=== PATIENT | male | born 1980 | race Caucasian/White ===

== ENCOUNTER 2018-06-20 09:06 | Emergency (ER) | payer BC ==
[2018-06-20 09:44] VITALS: BP 137/85
--- NOTE | 2018-06-20 10:03 | UC ---
Respiratory Complaint HPI - HPI Summary HPI Summary: Per survey chief: "c/o runny nose, head congestion, chills, occasional cough that started yesterday. Denies any fever" -sudden osnet yesterday afternoon + body aches -no APAP or NSAIDs -no asthma, no wheezing - History of Current Complaint Chief Complaint: UCRespiratory Stated Complaint: CONGESTION,COUGH,CHILLS Time Seen by Provider: 06/20/18 09:36 Pain Intensity: 0 - Allergies/Home Medications Allergies/Adverse Reactions: Allergies Allergy/AdvReac Type Severity Reaction Status Date / Time No Known Allergies Allergy Verified 06/20/18 09:41 PMH/Surg Hx/FS Hx/Imm Hx Previously Healthy: Yes - Surgical History Surgical History: None - Family History Known Family History: Positive: None - Social History Alcohol Use: Rare Substance Use Type: None Smoking Status (MU): Never Smoked Tobacco Household Exposure Type: Cigarettes - Immunization History Most Recent Influenza Vaccination: [id number] Most Recent Tetanus Shot: <10 years Most Recent Pneumonia Vaccination: never Review of Systems All Other Systems Reviewed And Are Negative: Yes Constitutional: Positive: Fever, Chills, Fatigue Skin: Positive: Negative Eyes: Positive: Negative ENT: Positive: Sore Throat, Nasal Discharge. Negative: Sinus Pain/Tenderness Respiratory: Positive: Cough. Negative: Shortness Of Breath Cardiovascular: Positive: Negative. Negative: Palpitations, Chest Pain Gastrointestinal: Positive: Negative Genitourinary: Positive: Negative Motor: Positive: Negative Neurovascular: Positive: Negative Musculoskeletal: Positive: Negative Neurological: Positive: Negative Psychological: Positive: Negative Is Patient Immunocompromised?: No Physical Exam Triage Information Reviewed: Yes Appearance: Well-Appearing, No Pain Distress, Well-Nourished - very pleasant Vital Signs: Initial Vital Signs Temp 100.3 F 06/20/18 09:42 Pulse 81 06/20/18 09:42 Resp 15 06/20/18 09:42 BP 137/85 06/20/18 09:42 Pulse Ox 100 06/20/18 09:42 Vital Signs Reviewed: Yes Eye Exam: Normal ENT: Positive: Pharyngeal erythema, Nasal congestion, TMs normal, Uvula midline. Negative: TM bulging, TM dull, TM red, Tonsillar swelling, Tonsillar exudate, Sinus tenderness Neck exam: Normal Neck: Positive: Supple, Nontender, No Lymphadenopathy Respiratory Exam: Normal Respiratory: Positive: Lungs clear, Normal breath sounds, No respiratory distress, No accessory muscle use. Negative: Crackles, Rhonchi, Stridor, Wheezing Cardiovascular Exam: Normal Cardiovascular: Positive: RRR Abdominal Exam: Normal Abdomen Description: Positive: Nontender Musculoskeletal Exam: Normal Neurological Exam: Normal Psychological Exam: Normal Skin Exam: Normal Respiratory Course/Dx - Course Course Of Treatment: rapid flu neg -supportive treatment -sx mild - Differential Dx/Diagnosis Differential Diagnosis/HQI/PQRI: Bronchitis, Influenza Provider Diagnosis: Upper respiratory infection Discharge - Sign-Out/Discharge Documenting (check all that apply): Patient Departure All imaging exams completed and their final reports reviewed: No Studies - Discharge Plan Condition: Stable Disposition: HOME Forms: *Gen. Provider Communication Referrals: Kelton Genao MD [Primary Care Provider] - Additional Instructions: Flu swab is negative -rest, fluids, ibuprofen or tylenol will be helpful for symptoms. -follow up with your primary care if your symptoms increase or persist. - Billing Disposition and Condition Condition: STABLE Disposition: Home
[2018-06-20 10:21] LABS: Influenza A Molecular NEGATIVE (Negative); Influenza B Molecular NEGATIVE (Negative)
== END 2018-06-20 10:36 | disposition home or self-care (01) ==
LOC: UCCORT 09:06
DX: J06.9 Acute upper respiratory infection, unspecified (principal)
CPT/HCPCS: 99201; G0463

== ENCOUNTER 2019-03-09 12:45 | Emergency (ER) | payer BC ==
[2019-03-09 13:05] VITALS: BP 126/89
--- NOTE | 2019-03-09 13:14 | UC ---
Respiratory Complaint HPI - HPI Summary HPI Summary: PATIENT HAD URI SYMPTOMS ABOUT 2 WEEKS AGO INCLUDING COUGH, CONGESTION, SORE THROAT. STATES HIS SYMPTOMS ALL RESOLVED EXCEPT FOR A PERSISTENT COUGH WHICH SOMETIMES MAKES IT DIFFICULT FOR HIM TO SLEEP THROUGH THE NIGHT. - History of Current Complaint Chief Complaint: UCGeneralIllness Stated Complaint: URI Time Seen by Provider: 03/09/19 13:05 Hx Obtained From: Patient Onset/Duration: Gradual Onset, Lasting Weeks, Still Present Timing: Constant Severity Initially: Mild Severity Currently: Mild Pain Intensity: 0 Pain Scale Used: 0-10 Numeric Character: Cough: Nonproductive Aggravating Factors: Nothing Alleviating Factors: Nothing Associated Signs And Symptoms: Positive: URI - RESOLVED - Allergies/Home Medications Allergies/Adverse Reactions: Allergies Allergy/AdvReac Type Severity Reaction Status Date / Time No Known Allergies Allergy Verified 06/20/18 09:41 PMH/Surg Hx/FS Hx/Imm Hx Previously Healthy: Yes - Surgical History Surgical History: None - Family History Known Family History: Positive: None - Social History Alcohol Use: Occasionally Substance Use Type: None Smoking Status (MU): Never Smoked Tobacco Household Exposure Type: Cigarettes - Immunization History Most Recent Influenza Vaccination: [id number] Most Recent Tetanus Shot: <10 years Most Recent Pneumonia Vaccination: never Review of Systems All Other Systems Reviewed And Are Negative: Yes Constitutional: Positive: Negative ENT: Positive: Negative Respiratory: Positive: Cough Cardiovascular: Positive: Negative Gastrointestinal: Positive: Negative Physical Exam Triage Information Reviewed: Yes Appearance: Well-Appearing, No Pain Distress, Well-Nourished Vital Signs: Initial Vital Signs Temp 98.1 F 03/09/19 13:00 Pulse 70 03/09/19 13:00 Resp 18 03/09/19 13:00 BP 126/89 03/09/19 13:00 Pulse Ox 99 03/09/19 13:00 Vital Signs Reviewed: Yes Eyes: Positive: Conjunctiva Clear ENT: Positive: Hearing grossly normal, Pharynx normal, TMs normal Neck: Positive: Supple, Nontender, No Lymphadenopathy Respiratory Exam: Normal Cardiovascular Exam: Normal Abdomen Description: Positive: Soft Musculoskeletal: Positive: No Edema Neurological: Positive: Alert Psychological: Positive: Age Appropriate Behavior Skin: Negative: Rashes Respiratory Course/Dx - Differential Dx/Diagnosis Provider Diagnosis: Post-viral cough syndrome Discharge ED - Sign-Out/Discharge Documenting (check all that apply): Patient Departure All imaging exams completed and their final reports reviewed: No Studies - Discharge Plan Condition: Stable Disposition: HOME Prescriptions: Benzonatate CAP* [Tessalon CAP*] 1 - 2 cap PO TID PRN #30 cap PRN Reason: Cough predniSONE TAB* [Deltasone TAB*] 50 mg PO DAILY #5 tab Patient Education Materials: Acute Cough (ED) Referrals: Kelton Genao MD [Primary Care Provider] - If Needed Additional Instructions: I SUSPECT YOUR PERSISTENT COUGH IS A RESULT OF RESIDUAL INFLAMMATION IN YOUR AIRWAYS DUE TO YOUR RECENT URI. NO INDICATION FOR ANTIBIOTICS AT PRESENT. WILL TREAT AIRWAY INFLAMMATION WITH PREDNISONE. COUGH MEDICINE NEEDED. REST , HYDRATE. FOLLOW-UP IF NOT IMPROVING EXPECTED. - Billing Disposition and Condition Condition: STABLE Disposition: Home
== END 2019-03-09 13:28 | disposition home or self-care (01) ==
LOC: UCEAST 12:45
DX: R05 Cough (principal); B34.9 Viral infection, unspecified
CPT/HCPCS: 99211; G0463

== ENCOUNTER 2019-04-12 19:24 | Emergency (ER) | payer BC ==
--- OUTSIDE RECORDS SUMMARY | 2019-04-12 19:31 | XMS REPORT | Summary of Care ---
:1980 Author Organization [facility] Address [address] [place] [address] Care Team Providers Name Role Phone Kelton Genao Unavailable Kelton Genao Primary Care Provider Reason for Visit Reason Comments Sick body aches, hot and cold flashes, sore throat, sinus congestion Encounter Details Date Type Department Care Team Description 03/02/2019 Office Visit [facility] Josephine Tilley, Oral candidiasis ( Primary Dx); Practice [facility] Acute URI [address] [place] [address] [place] [address] [phone] Allergies No Known Allergiesdocumented as of this encounter (statuses as of 03/02/2019) Medications Medication Sig Dispensed Refills Start Date End Date Status clotrimazole anna Take 10 mg by 70 Tab 0 03/02/2019 Active (MYCELEX) 10 MG mouth FIVE Mouth/Throat TIMES DAILY. TrocheIndications: Oral candidiasis DiphenhydrAMINE HCl Take by 0 Discontinued (BENADRYL ALLERGY PO) mouth. 9 Benzonatate 200 MG Take 1 Cap by 42 Cap 0 04/28/2017 Discontinued Oral Cap mouth THREE 9 TIMES DAILY NEEDED (cough). Dextromethorphan-Guai Take by 0 Discontinued fenesin (ROBITUSSIN mouth 9 DM PO) NEEDED. Wmvytbjszywhf-LY-WM-A Take by 0 Discontinued PAP (MUCINEX FAST-MAX mouth 9 SEVERE COLD PO) NEEDED. guaiFENesin-codeine Take 10 mL by 420 mL 0 05/01/2017 Discontinued (ROBITUSSIN AC) mouth EVERY 9 100-10 MG/5ML Oral BEDTIME SolutionIndications: NEEDED Persistent cough (cough). Max Daily Amount: 10 mL. documented as of this encounter (statuses as of 03/02/2019) Active Problems No known active problemsdocumented as of this encounter (statuses as of 2018) Social History Tobacco Use Types Packs/Day Years Used Date Never Smoker Smokeless Tobacco: Never Used Alcohol Use Drinks/Week oz/Week Comments No Sex Assigned at Date Recorded Not on file Job Start Date Occupation Industry Not on file Not on file Not on file Travel History Travel Start Travel End No recent travel history available. documented as of this encounter Last Filed Vital Signs Vital Sign Reading Time Taken Comments Blood Pressure 124/74 03/02/2019 2:15 PM EST Pulse 89 03/02/2019 2:15 PM EST Temperature 37.6 03/02/2019 2:15 PM C (99.7 EST F) Respiratory Rate - - Oxygen Saturation 98% 03/02/2019 2:15 PM EST Inhaled Oxygen Concentration - - Weight 82.5 kg (181 lb 12.8 oz) 03/02/2019 2:15 PM EST Height 182.9 cm (6') 03/02/2019 2:15 PM EST Body Mass Index 24.66 03/02/2019 2:15 PM EST documented in this encounter Patient Instructions Patient InstructionsJosephine Tilley NP - 03/02/2019 2:20 PM EST Clotrimazole anna - use 5 times daily for 14 days. Please return after treatment so I can check your tongue again. Please do labs today. 1) Take Tylenol and Motrin over the counter as needed for pain and symptom relief 2) Flonase 2 sprays in each nostril daily 3) salt water gargles, cough drops, hot tea with lemon or honey to soothe your throat. 4) Get plenty of rest and fluids 5) Please call or return if symptoms worsen or fail to improve You have been prescribed an antibiotic for treatment of your condition. It is important to rememberthat antibiotics treat bacterial infections. In order for them to be effective - you must take ALL of the medication and take it exactly as prescribed. FINISH THE MEDICATION - even if you are feelingbetter. Antibiotics can cause stomach upset and diarrhea. You can help decrease these symptoms by also taking a probiotic while using the medication (Align, Culturelle or the like). Take with food if recommended by the pharmacist. If you are not feeling better in 3-5 days - call or return to the office. 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 It can affect your nose, throat, ears,and sinuses. Common signs and symptoms include the following: Cold symptoms are usually worst for the first 3 to5 days. You may have any of the following: Runny or stuffy nose Sneezing and coughing Sore throat or hoarseness Red, watery, and sore eyes Fatigue Chills and fever Headache, body aches, or sore muscles Seek care immediately if: You have severe headaches, a stiff neck, or eye pain when you look at bright light. You have chest pain or trouble breathing. Contact your healthcare provider if: You have a fever over 102F (39C). Your sore throat gets worse or you see white or yellow spots in your throat. Your symptoms get worse after 3 to 5 days or your cold is not better in 14 days. You have a rash anywhere on your skin. You have large, tender lumps in your neck. You have thick, green or yellow drainage from your nose. You cough up thick yellow, green, mcleod, or bloody mucus. You have vomiting for more than 24 hours and cannot keep fluids down. You have a bad earache. You have questions or concerns about your condition or care. Treatment for a cold: There is no cure for the common cold. Colds are caused by viruses and do not get better with antibiotics. Most people get better in 7 to 14 days. You may continue to cough for 2 to 3 weeks. The following may help decrease your symptoms: Decongestants help reduce nasal congestion and help you breathe more easily. If you take decongestant pills, they may make you feel restless or not able to sleep. Do not use decongestant sprays for more than a few days. Cough suppressants help reduce coughing. Ask your healthcare provider which type of cough medicine is best for you. NSAIDs , such as ibuprofen, help decrease swelling, pain, and fever. NSAIDs can cause stomach bleeding or kidney problems in certain people. If you take blood thinner medicine, always ask your healthcare provider if NSAIDs are safe for you. Always read the medicine label and follow directions. Acetaminophen decreases pain and fever. It is available without a doctor' s order. Ask how muchto take and how often to take it. Follow directions. Acetaminophen can cause liver damage if not taken correctly. Manage your cold: Use a humidifier or vaporizer. Use a cool mist humidifier or a vaporizer to increase air moisture in your home. This may make it easier for you to breathe and help decrease your cough. Gargle with warm salt water to help your sore throat feel better. Make salt water by adding teaspoon salt to 1 cup warm water. You may also suck on hard candy or throat lozenges. You may usea sore throat spray. Use saline nasal drops to help relieve your congestion. Drink liquids as directed. Liquids help keep your air passages moist and help you cough up mucus. Ask how much liquid to drink each day and which liquids are best for you. Rest as much as possible. Slowly start to do more each day. Prevent spreading your cold to others: Try to stay away from other people during the first 2 to 3 days of your cold when it is more easily spread. Do not share food or drinks. Do not share hand towels with household members. Wash your hands often, especially after you blow your nose. Turn away from other people and cover your mouth and nose with a tissue when you sneeze or cough. Follow up with your healthcare provider as directed: Write down your questions so you remember to ask them during your visits. 2016 [employer] Information is for End User's use only and may not be sold, redistributed or otherwise used for commercial purposes. All illustrations and images included in CareNotes are the copyrighted property of [employer] or [employer]. The above information is an blind aide only. It is not intended as medical advice for individual conditions or treatments. Talk to your doctor, nurse or pharmacist before following any medical regimen to see if it is safe and effective for you. documented in this encounter Progress Notes Josephine Tilley NP - 03/02/2019 2:20 PM EST PATIENT: Olivier Bynum : 1980 DATE OF SERVICE: 03/02/2019 CHIEF COMPLAINT: Chief Complaint Patient presents with Sick body aches, hot and cold flashes, sore throat, sinus congestion Subjective HISTORY OF PRESENT ILLNESS: Olivier Bynum is a 38-y.o. male. HPI Sick since yesterday - hot/cold chills, body aches, congestion, unsure about fever but felt warm, nocough, +sore throat. Parents were sick previously. Works for [employer]. Treatements include tylenol which helps a bit with the fever (feeling warm). Last dose was this am around 4am. Sickness came on gradually rather than suddenly. He worked last night and felt ok, but then started feeling sick when he got home and then worse today. Past Medical History: Diagnosis Date Seasonal allergies spring -claritin D Family History Problem Relation Age of Onset Heart Maternal Grandfather Current Outpatient Medications Medication Sig clotrimazole anna (MYCELEX) 10 MG Mouth/Throat Anna Take 10 mg by mouth FIVE TIMES DAILY. No current facility-administered medications for this visit. No Known Allergies Social History Socioeconomic History Marital status: Single Spouse name: Not on file Number of children: Not on file Years of education: Not on file Highest education level: Not on file Occupational History Not on file Social Needs Financial resource strain: Not on file Food insecurity Worry: Not on file Inability: Not on file Transportation needs Medical: Not on file Non-medical: Not on file Tobacco Use Smoking status: Never Smoker Smokeless tobacco: Never Used Substance and Sexual Activity Alcohol use: No Drug use: No Sexual activity: Not on file Lifestyle Physical activity Days per week: Not on file Minutes per session: Not on file Stress: Not on file Relationships Social connections Talks on phone: Not on file Gets together: Not on file Attends advent service: Not on file Active member of club or organization: Not on file Attends meetings of clubs or organizations: Not on file Relationship status: Not on file Intimate partner violence Fear of current or ex partner: Not on file Emotionally abused: Not on file Physically abused: Not on file Forced sexual activity: Not on file Other Topics Concern Back Care Not Asked Bike Helmet Not Asked Blood Transfusions Not Asked Caffeine Concern Not Asked Exercise Not Asked Hobby Hazards Not Asked International Travel Not Asked Service Not Asked Occupational Exposure Not Asked Seat Belt Not Asked Self-Exams Not Asked Sleep Concern Not Asked Special Diet Not Asked Stress Concern Not Asked Weight Concern Not Asked Social History Narrative [place] 3 Over the last 2 weeks, have you been feeling down, depressed, anxious, or hopeless?: 0 Over the past 2 weeks, have you felt little interest or pleasure in doing things ?: 0 REVIEW OF SYSTEMS: Review of Systems Constitutional: Positive for chills, fever and malaise/fatigue. HENT: Positive for congestion, sinus pain and sore throat. Negative for ear discharge and ear pain. Eyes: Negative for pain, discharge and redness. Respiratory: Positive for cough (slight here and there). Negative for shortness of breath. Cardiovascular: Negative for chest pain and palpitations. Gastrointestinal: Negative for nausea and vomiting. Musculoskeletal: +body aches Neurological: Positive for headaches (earlier today). Negative for dizziness. Objective PHYSICAL EXAM: VITALS: BP 124/74 (BP Location: Left arm, Patient Position: Sitting) | Pulse 89 | Temp 99.7 F(37.6 C) (Tympanic) | Ht 6' (1.829 m) | Wt 181 lb 12.8 oz (82.5 kg) | SpO2 98% | BMI 24.66 kg/m Body mass index is 24.66 kg /m. Physical Exam Vitals signs and nursing note reviewed. Constitutional: General: He is not in acute distress. Appearance: Normal appearance. He is well-developed. He is not ill-appearing or toxic-appearing. HENT: Right Ear: Tympanic membrane, ear canal and external ear normal. No mastoid tenderness. Tympanic membrane is not erythematous, retracted or bulging. Left Ear: Tympanic membrane, ear canal and external ear normal. No mastoid tenderness. Tympanic membrane is not erythematous, retracted or bulging. Nose: Nose normal. No mucosal edema. Right Sinus: No maxillary sinus tenderness or frontal sinus tenderness. Left Sinus: No maxillary sinus tenderness or frontal sinus tenderness. Mouth/Throat: Mouth: Mucous membranes are moist. Pharynx: Oropharynx is clear. Uvula midline. Posterior oropharyngeal erythema present. No oropharyngeal exudate. Tonsils: No tonsillar exudate. Swellin+ on the right. 1+ on the left. Comments: Black hairy tongue noted with geographic features. See image below. Eyes: Conjunctiva/sclera: Conjunctivae normal. Cardiovascular: Rate and Rhythm: Normal rate and regular rhythm. Heart sounds: Normal heart sounds. Pulmonary: Effort: Pulmonary effort is normal. Breath sounds: Normal breath sounds. Lymphadenopathy: Head: Right side of head: Submandibular adenopathy present. No submental, tonsillar , preauricular or posterior auricular adenopathy. Left side of head: Submandibular adenopathy present. No submental, tonsillar , preauricular or posterior auricular adenopathy. Cervical: No cervical adenopathy. Right cervical: No superficial cervical adenopathy. Left cervical: No superficial cervical adenopathy. Upper Body: Right upper body: No supraclavicular adenopathy. Left upper body: No supraclavicular adenopathy. Neurological: Mental Status: He is alert. Psychiatric: Behavior: Behavior is cooperative. ASSESSMENT / IMPRESSION: ICD-9-CM ICD-10-CM 1. Oral candidiasis 112.0 B37.0 clotrimazole anna (MYCELEX) 10 MG Mouth/ Throat Anna HIV 1,2 ANTIBODY SCREEN HIV 1,2 ANTIBODY SCREEN 2. Acute URI 465.9 J06.9 STREP A ANTIGEN (AMB POCT) THROAT STREP SCREEN CULTURE THROAT STREP SCREEN CULTURE Plan 1. Oral candidiasis Will treat for thrush - discussed with patient to check HIV. Follow up in 2 weeks to recheck. - clotrimazole anna (MYCELEX) 10 MG Mouth/Throat Anna; Take 10 mg by mouth FIVE TIMES DAILY. Dispense: 70 Tab; Refill: 0 - HIV 1,2 ANTIBODY SCREEN; Future - HIV 1,2 ANTIBODY SCREEN 2. Acute URI Strep negative, will send for culture. - STREP A ANTIGEN (AMB POCT) - THROAT STREP SCREEN CULTURE; Future - THROAT STREP SCREEN CULTURE Patient Instructions Clotrimazole anna - use 5 times daily for 14 days. Please return after treatment so I can check your tongue again. Please do labs today. 1) Take Tylenol and Motrin over the counter as needed for pain and symptom relief 2) Flonase 2 sprays in each nostril daily 3) salt water gargles, cough drops, hot tea with lemon or honey to soothe your throat. 4) Get plenty of rest and fluids 5) Please call or return if symptoms worsen or fail to improve You have been prescribed an antibiotic for treatment of your condition. It is important to rememberthat antibiotics treat bacterial infections. In order for them to be effective - you must take ALL of the medication and take it exactly as prescribed. FINISH THE MEDICATION - even if you are feelingbetter. Antibiotics can cause stomach upset and diarrhea. You can help decrease these symptoms by also taking a probiotic while using the medication (Align, Culturelle or the like). Take with food if recommended by the pharmacist. If you are not feeling better in 3-5 days - call or return to the office. 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 It can affect your nose, throat, ears,and sinuses. Common signs and symptoms include the following: Cold symptoms are usually worst for the first 3 to5 days. You may have any of the following: Runny or stuffy nose Sneezing and coughing Sore throat or hoarseness Red, watery, and sore eyes Fatigue Chills and fever Headache, body aches, or sore muscles Seek care immediately if: You have severe headaches, a stiff neck, or eye pain when you look at bright light. You have chest pain or trouble breathing. Contact your healthcare provider if: You have a fever over 102F (39C). Your sore throat gets worse or you see white or yellow spots in your throat. Your symptoms get worse after 3 to 5 days or your cold is not better in 14 days. You have a rash anywhere on your skin. You have large, tender lumps in your neck. You have thick, green or yellow drainage from your nose. You cough up thick yellow, green, mcleod, or bloody mucus. You have vomiting for more than 24 hours and cannot keep fluids down. You have a bad earache. You have questions or concerns about your condition or care. Treatment for a cold: There is no cure for the common cold. Colds are caused by viruses and do not get better with antibiotics. Most people get better in 7 to 14 days. You may continue to cough for 2 to 3 weeks. The following may help decrease your symptoms: Decongestants help reduce nasal congestion and help you breathe more easily. If you take decongestant pills, they may make you feel restless or not able to sleep. Do not use decongestant sprays for more than a few days. Cough suppressants help reduce coughing. Ask your healthcare provider which type of cough medicine is best for you. NSAIDs , such as ibuprofen, help decrease swelling, pain, and fever. NSAIDs can cause stomach bleeding or kidney problems in certain people. If you take blood thinner medicine, always ask your healthcare provider if NSAIDs are safe for you. Always read the medicine label and follow directions. Acetaminophen decreases pain and fever. It is available without a doctor' s order. Ask how muchto take and how often to take it. Follow directions. Acetaminophen can cause liver damage if not taken correctly. Manage your cold: Use a humidifier or vaporizer. Use a cool mist humidifier or a vaporizer to increase air moisture in your home. This may make it easier for you to breathe and help decrease your cough. Gargle with warm salt water to help your sore throat feel better. Make salt water by adding teaspoon salt to 1 cup warm water. You may also suck on hard candy or throat lozenges. You may usea sore throat spray. Use saline nasal drops to help relieve your congestion. Drink liquids as directed. Liquids help keep your air passages moist and help you cough up mucus. Ask how much liquid to drink each day and which liquids are best for you. Rest as much as possible. Slowly start to do more each day. Prevent spreading your cold to others: Try to stay away from other people during the first 2 to 3 days of your cold when it is more easily spread. Do not share food or drinks. Do not share hand towels with household members. Wash your hands often, especially after you blow your nose. Turn away from other people and cover your mouth and nose with a tissue when you sneeze or cough. Follow up with your healthcare provider as directed: Write down your questions so you remember to ask them during your visits. 2016 [employer]. Information is for End User's use only and may not be sold, redistributed or otherwise used for commercial purposes. All illustrations and images included in CareNotes are the copyrighted property of [employer] or [employer]. The above information is an blind aide only. It is not intended as medical advice for individual conditions or treatments. Talk to your doctor, nurse or pharmacist before following any medical regimen to see if it is safe and effective for you. Author: Josephine Tilley NP 03/02/2019 19:17 documented in this encounter Plan of Treatment Date Type Specialty Care Team Description 03/16/2019 Office Visit Family Practice Josephine Tilley NP [address] [place] [address] [phone] Name Type Priority Associated Diagnoses Date/Time HIV 1,2 ANTIBODY SCREEN Lab Routine Oral candidiasis 03/02/2019 3:33 PM EST THROAT STREP SCREEN Lab Routine Acute URI 03/02/2019 2:35 PM EST CULTURE Name Type Priority Associated Diagnoses Order Schedule HIV 1,2 ANTIBODY SCREEN Lab Routine Oral candidiasis Expected: 03/02/2019 (Approximate), Expires: 03/02/2020 STREP A ANTIGEN (AMB POCT Routine Acute URI Ordered: 03/02/2019 POCT) THROAT STREP SCREEN Lab Routine Acute URI 1 Occurrences starting CULTURE 03/02/2019 until 08/29/2019 Health Maintenance Due Date Last Done Comments DTaP/Tdap/Td Vaccines (1 - Tdap) 1992 HIV SCREENING 1996 INFLUENZA VACCINE (#1) 2018 DEPRESSION SCREENING 03/02/2020 03/02/2019 HEPATITIS A IMMUNIZATION SERIES Aged Out No longer eligible based on patient's age to complete this topic HPV IMMUNIZATION SERIES Aged Out No longer eligible based on patient's age to complete this topic MENINGOCOCCAL VACCINE IMM Aged Out No longer eligible based on patient's age to complete this topic PNEUMOCOCCAL 0-64 YRS Aged Out No longer eligible based on patient's age to complete this topic documented as of this encounter Results Not on filedocumented in this encounter Visit Diagnoses Diagnosis Oral candidiasis Candidiasis of mouth Acute URI Acute upper respiratory infections of unspecified site documented in this encounter Insurance Payer Benefit Plan / Subscriber ID Effective Dates Phone Address Type Group [employer] xxxxxxxxxxxx 2014-Present [employer] Name Account Type Relation to Date of Phone Billing Patient Address Olivier Bynum Personal/Family 1980 [address] (Home) [place], [place] [phone] (Work) documented as of this encounter"
[2019-04-12 19:35] VITALS: BP 129/88
[2019-04-12] MEDS ORDERED: Ibuprofen TAB* 600 MG PO ONE (20:00)
--- NOTE | 2019-04-12 20:06 | UC ---
FLU HPI - HPI Summary HPI Summary: 38-year-old male comes in with a chief complaint of chest congestion and chest tightness fevers chills and body aches that started yesterday. Patient is not a smoker no history of asthma. Chest feels tight. Denies any wheezing. Minimal rhinorrhea. He has been having fevers. 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 - History of Current Complaint Chief Complaint: UCRespiratory Stated Complaint: COUGH, CONGESTION Time Seen by Provider: 04/12/19 19:55 Pain Intensity: 6 - Allergy/Home Medications Allergies/Adverse Reactions: Allergies Allergy/AdvReac Type Severity Reaction Status Date / Time No Known Allergies Allergy Verified 04/12/19 19:34 Home Medications: Home Medications guaiFENesin ER TAB [Mucinex*] 600 mg PO PRN 04/12/19 [History] PMH/Surg Hx/FS Hx/Imm Hx Previously Healthy: Yes - Surgical History Surgical History: None - Family History Known Family History: Positive: None - Social History Alcohol Use: Rare Substance Use Type: None Smoking Status (MU): Never Smoked Tobacco Household Exposure Type: Cigarettes - Immunization History Most Recent Influenza Vaccination: [id number] Most Recent Tetanus Shot: <10 years Most Recent Pneumonia Vaccination: never Review of Systems All Other Systems Reviewed And Are Negative: Yes Constitutional: Positive: Fever, Other - SEE HPI Skin: Positive: Negative Eyes: Positive: Negative ENT: Positive: Nasal Discharge Respiratory: Positive: Shortness Of Breath, Cough, Other - SEE HPI Cardiovascular: Positive: Chest Pain - SEE HPI Gastrointestinal: Positive: Negative Motor: Positive: Negative Neurovascular: Positive: Negative Musculoskeletal: Positive: Myalgia Neurological: Positive: Negative Psychological: Positive: Negative Is Patient Immunocompromised?: No Physical Exam Triage Information Reviewed: Yes Appearance: No Pain Distress, Well-Nourished, Ill-Appearing - MILD Vital Signs: Initial Vital Signs Temp 100.9 F 04/12/19 19:31 Pulse 114 04/12/19 19:31 Resp 20 04/12/19 19:31 BP 129/88 04/12/19 19:31 Pulse Ox 99 04/12/19 19:31 Vital Signs Reviewed: Yes Eye Exam: Normal Eyes: Positive: Conjunctiva Clear ENT: Positive: Pharyngeal erythema, TMs normal Neck: Positive: Supple Respiratory: Positive: Lungs clear, Normal breath sounds, No respiratory distress Cardiovascular: Positive: RRR Musculoskeletal: Positive: Strength Intact, ROM Intact Neurological: Positive: Alert, Muscle Tone Normal Psychological: Positive: Age Appropriate Behavior Skin Exam: Normal Flu Course/Dx - Course Course Of Treatment: Patient was given a nebulizer here in clinic. Patient does feel like he is breathing better and his lungs sounded clear on reexamination. A chest x-ray I do not see an infiltrate. Final radiologist reading is pending. With the patient being so short of breath and having a fever with the bronchitis will treat with antibiotics. Plan is accommodation of Ceftin urinate azithromycin. Also patient's going home with an albuterol inhaler. Patient is to follow-up his primary care physician are get reevaluated sooner if worse or any questions or concerns. - Differential Dx/Diagnosis Provider Diagnosis: Bronchitis with bronchospasm Discharge ED - Sign-Out/Discharge Documenting (check all that apply): Patient Departure All imaging exams completed and their final reports reviewed: No Studies - Discharge Plan Condition: Stable Disposition: HOME Prescriptions: Azithromyxin MIRIAN (NF) [Z-Mirian (Zithromax) 250 mg tabs #6] 2 tab PO .TODAY, THEN 1 DAILY #6 tab Cefdinir [Cefdinir 300 MG CAP] 300 mg PO BID #18 cap Patient Education Materials: Acute Bronchitis (ED), Bronchospasm (ED) Referrals: Kelton Genao MD [Primary Care Provider] - Additional Instructions: FOLLOW UP WITH YOUR DOCTOR IF NOT COMPLETELY IMPROVED. GET REEVALUATED SOONER IF NOT IMPROVED OR WORSE OR ANY QUESTIONS OR CONCERNS. - Billing Disposition and Condition Condition: STABLE Disposition: Home
[2019-04-12 20:26] LABS: Influenza A Molecular NEGATIVE (Negative); Influenza B Molecular NEGATIVE (Negative)
[2019-04-12] MEDS ORDERED: Albuterol 2.5 MG/3 ML NEB.SOL* (0.083%) INH ONE (20:40)
[2019-04-12] MEDS ORDERED: Cefdinir cap* 300 MG CAP PO ONE (21:06)
[2019-04-12] MEDS ORDERED: Albuterol HFA INHALER* 8 gm MDI INH ONE (21:07)
== END 2019-04-12 21:35 | disposition home or self-care (01) ==
LOC: UCEAST 19:24
DX: J40 Bronchitis, not specified as acute or chronic (principal); J98.01 Acute bronchospasm; J39.2 Other diseases of pharynx; M79.10 Myalgia, unspecified site; R09.89 Other specified symptoms and signs involving the circulatory and respiratory systems
CPT/HCPCS: 71046; 99213; A9270-GY; G0463